=== PATIENT | female | born 1940 | race Caucasian/White ===

== ENCOUNTER 2016-11-29 10:28 | Observation (INO) | payer MEDICARE, SELFPAY ==
--- NOTE | ~2016-11-29 | HP ---
History And Physical [facility] [address] [place]. [address] NAME: KRISTYN FREEMAN : 38 STATUS : ADM Seb PAT#: [id number] AGE: 76 ADM/REG DATE : 11/29/16 MR#: [id number] REPORT SERV DATE: 11/29/16 DICTATED BY: NOEL WHITTEN III DATE: 11/29/16 REPORT STATUS : Draft TRANSCRIBED BY: RANDY DATE: 11/29/16 DATE OF ADMISSION: 11/29/2016 HISTORY OF PRESENT ILLNESS: Mrs. Kristyn Freeman is a 76-year-old white female from [place], [place], admitted to [facility] for evaluation and treatment of new onset atrial fibrillation with a rapid ventricular response. The patient had been in her usual state of health until approximately five days prior to this admission. At that time, the patient noted the onset of tachy palpitations lasting up to three minutes in duration. The patient's palpitations were occasionally accompanied by nausea. The patient denied any associated dyspnea, diaphoresis, vomiting, and chest pain. The patient's palpitations were precipitated by emotional upset. The patient denied relation to exertion, caffeine intake, chocolate intake, and sympathomimetic use. The patient denied relieving factors. The patient denied trying a Valsalva maneuver. The patient has noted palpitations at rest. The patient denied being woken from sleep by palpitations. The patient denied any change in the frequency or duration of her palpitations. The patient was subsequently seen in the [facility] emergency room. A 12-lead electrocardiogram demonstrated atrial fibrillation with an average ventricular response of 136 beats per minute, left anterior fascicular block and nonspecific ST-segment abnormalities. The patient's B-type natriuretic peptide level was 282.2 and troponin I level was 0.04. The patient was treated with enoxaparin and intravenous diltiazem up to a maximum of 20 mg/hour. The patient was subsequently admitted for further evaluation and therapy. The patient denied chest pain, syncope, dyspnea on exertion, orthopnea, paroxysmal nocturnal dyspnea, trepopnea, platypnea, sacral edema, pedal edema, hip claudication, and lower extremity claudication. The patient has no history of rheumatic fever or cardiac murmur. The patient's documented coronary artery disease risk factors include diabetes mellitus, obesity, and hypertension. The patient has no history of hyperthyroidism, congenital heart disease, chest trauma, chronic obstructive pulmonary disease, recent pneumonia, pulmonary thromboembolism, and alcohol use. PAST MEDICAL HISTORY: 1. Type II diabetes mellitus. 2. Obesity. 3. Hypertension. OPERATIVE PROCEDURES: Status post tonsillectomy. ALLERGIES: CEFACLOR (RASH). MEDICATIONS: 1. Aspirin 81 mg p.o. daily. 2. Glimepiride 1 mg p.o. daily. 3. Losartan 25 mg p.o. daily. 4. Multivitamin with minerals one p.o. daily. 5. Naphazoline-glycerin ophthalmic drops, one drop OU p.r.n. History And Physical [address] [address] NAME: KRISTYN FREEMAN : 38 STATUS : ADM Seb PAT#: [id number] AGE: 76 ADM/REG DATE : 11/29/16 MR#: [id number] REPORT SERV DATE: 11/29/16 DICTATED BY: NOEL WHITTEN III DATE: 11/29/16 REPORT STATUS : Draft TRANSCRIBED BY: RANDY DATE: 11/29/16 FAMILY HISTORY: Positive for diabetes mellitus and stroke. Negative for myocardial infarction, hypertension, cancer, seizures, kidney disease, liver disease, anemia, arthritis, and mental illness. SOCIAL HISTORY: The patient has no history of tobacco or alcohol use. PHYSICAL EXAMINATION: GENERAL: Demonstrated an alert, older white female, in no acute distress. VITAL SIGNS: Demonstrated a temperature of 97.9 orally, respiratory rate of 14 breaths per minute, and blood pressure of 175/108 mmHg with a heart rate of 77 beats per minute. SKIN: Warm and dry. NECK: Supple and nontender. There was decreased range of motion. There was no appreciable lymphadenopathy or thyromegaly. There was no jugular venous distention at 90 degrees. There were no carotid bruits. BACK: Examination of the back demonstrated no spinal or costovertebral angle tenderness. CHEST: Examination of the chest demonstrated coarse bibasilar inspiratory crackles. There were no rhonchi, wheezes, or pleural rubs. There was symmetrical expansion of the chest. There was no use of the accessary muscles respiration. CARDIAC: Demonstrated a nonpalpable apical impulse. There was an irregularly irregular rhythm and rate with a variable intensity first heart sound. There was no appreciable murmur, rub, gallop, or mid systolic click. There were no thrills or heaves. There was no hepatojugular reflux. ABDOMEN: Examination of the abdomen demonstrated that it was obese, soft, and protuberant. There was no appreciable hepatosplenomegaly or masses. Bowel sounds were intact. There were no abdominal or femoral bruits. EXTREMITIES: Examination of the extremities demonstrated that they were obese and symmetrical. There was decreased range of motion. There was no cyanosis, clubbing, or edema. Pulses were 2+ and equal at the radial, femoral, dorsalis pedis, and posterior tibial arteries. Serum laboratory studies demonstrated a potassium of 4.0, creatinine 0.86, calcium 9.2, and magnesium level was 2.2. The white blood cell count was 9700, hemoglobin 15.8, hematocrit 46.7, and a platelet count of 322,000. Telemetry strip recordings demonstrated atrial fibrillation with a controlled ventricular response. ASSESSMENT: Mrs. Kristyn Freeman is a 76-year-old white female with three other risk factors for coronary atherosclerotic disease (i.e. diabetes mellitus, obesity, hypertension) and no prior cardiac history, who now presents with new onset symptomatic atrial fibrillation with a rapid ventricular response. The patient is admitted for evaluation and initiation of therapy. /RANDY History And Physical [address] [address] NAME: KRISTYN FREEMAN : 38 STATUS : ADM Seb PAT#: [id number] AGE: 76 ADM/REG DATE : 11/29/16 MR#: [id number] REPORT SERV DATE: 11/29/16 DICTATED BY: NOEL WHITTEN III DATE: 11/29/16 REPORT STATUS : Draft TRANSCRIBED BY: RANDY DATE: 11/29/16 Noel Whitten III, M.D., [facility], [facility] / [id number] CC: Noel Whitten III, M.D., [facility], [facility]
[2016-11-29 11:10] LABS: BASOPHILS 0.3 %; BASOPHILS ABSOLUTE 0.03 10/3/uL (0.0-0.16); EOSINOPHILS 0.3 %; EOSINOPHILS ABSOLUTE 0.03 10/3/uL (0.0-0.53); HEMATOCRIT 46.7 % (36.0-48.0); HEMOGLOBIN 15.8 g/dL (12.0-16.0); IMMATURE GRANULOCYTES 0.3 %; IMMATURE GRANULOCYTES ABSOLUTE 0.03 10/3/uL (0.0-0.11); LYMPHOCYTES ABSOLUTE 1.55 10/3/uL (0.67-4.30); MEAN CORPUS HGB CONC 33.8 g/dL (32.0-36.0); MEAN CORPUSCULAR HEMOGLOB 29.3 pg (26.0-34.0); MEAN CORPUSCULAR VOLUME 86.5 fL (80-100); MONOCYTES 5.6 %; MONOCYTES ABSOLUTE 0.54 10/3/uL (0.21-1.20); NEUTROPHILS 77.5 %; NEUTROPHILS ABSOLUTE 7.52 10/3/uL (2.02-8.40); PLATELET COUNT 322 10/3/uL (150-400); RBC DISTRIBUTION WIDTH 12.8 % (12.0-16.0); WHITE BLOOD CELLS 9.7 10/3/uL (4.5-10.5)
[2016-11-29 11:11] LABS: ER CBC TAT 0 Hrs 03 Mins; MANUAL DIFF NO %
[2016-11-29 11:17] LABS: INTERNATIONAL NORMAL RATI 1.1 UNITS (-); PARTIAL THROMBO TIME 29.8 SEC (22.5-37.2); PROTIME (NOT ORD) 13.7 SEC (12.0-14.5)
[2016-11-29 11:33] LABS: BUN (BLOOD UREA NITROGEN) 20 MG/DL (6-23); CALCIUM, SERUM 9.2 MG/DL (8.5-10.4); CHEST PAIN PROFILE TAT 0 Hrs 26 Mins; CHLORIDE, SERUM 105 MMOL/L (96-112); CO2 (CARBON DIOXIDE) 30 MMOL/L (24-34); CREATININE 0.86 MG/DL (0.55-1.02); GFR AFRICAN AMERICAN 76 ML/MIN (>=60); GFR NON AFRICAN AMERICAN 65 ML/MIN (>=60); GLUCOSE, SERUM 129 MG/DL (60-99); SODIUM, SERUM 139 MMOL/L (135-148); TROPONIN I 0.04 NG/ML (<0.05)
[2016-11-29] MEDS ORDERED: AMARYL1 MG PO (14:10)
[2016-11-29] MEDS ORDERED: COZ25 PO (14:11)
[2016-11-29] MEDS ORDERED: ASAB PO (14:12)
[2016-11-29] MEDS ORDERED: OCUVITE PO (14:13)
[2016-11-29] MEDS ORDERED: CLEAR EYE1 OPH (14:15)
[2016-11-29 17:54] LABS: FREE T4 1.03 NG/DL (0.76-1.46)
[2016-11-30 05:48] LABS: BASOPHILS 0.6 %; BASOPHILS ABSOLUTE 0.05 10/3/uL (0.0-0.16); EOSINOPHILS 1.6 %; EOSINOPHILS ABSOLUTE 0.13 10/3/uL (0.0-0.53); HEMATOCRIT 45.1 % (36.0-48.0); HEMOGLOBIN 14.9 g/dL (12.0-16.0); IMMATURE GRANULOCYTES 0.5 %; IMMATURE GRANULOCYTES ABSOLUTE 0.04 10/3/uL (0.0-0.11); LYMPHOCYTES 22.2 %; LYMPHOCYTES ABSOLUTE 1.78 10/3/uL (0.67-4.30); MEAN CORPUSCULAR HEMOGLOB 28.9 pg (26.0-34.0); MEAN CORPUSCULAR VOLUME 87.6 fL (80-100); MONOCYTES 8.4 %; MONOCYTES ABSOLUTE 0.67 10/3/uL (0.21-1.20); NEUTROPHILS 66.7 %; NEUTROPHILS ABSOLUTE 5.34 10/3/uL (2.02-8.40); PLATELET COUNT 312 10/3/uL (150-400); RBC DISTRIBUTION WIDTH 12.6 % (12.0-16.0); RED CELL COUNT 5.15 10/6/uL (4.0-5.6)
[2016-11-30 05:52] LABS: MANUAL DIFF NO %
[2016-11-30 06:14] LABS: ALBUMIN 3.7 G/DL (3.5-5.0); ALKALINE PHOSPHATASE 66 U/L (45-117); CALCIUM, SERUM 8.8 MG/DL (8.5-10.4); CHLORIDE, SERUM 108 MMOL/L (96-112); CO2 (CARBON DIOXIDE) 30 MMOL/L (24-34); CREATININE 0.76 MG/DL (0.55-1.02); DIRECT BILIRUBIN 0.1 MG/DL (0.0-0.4); FREE T4 1.09 NG/DL (0.76-1.46); GFR AFRICAN AMERICAN 88 ML/MIN (>=60); GFR NON AFRICAN AMERICAN 76 ML/MIN (>=60); GLUCOSE, SERUM 121 MG/DL (60-99); INDIRECT BILIRUBIN(NOT ORDER) 1.3 MG/DL (0.1-0.9); POTASSIUM, SERUM 4.2 MMOL/L (3.5-5.3); SGOT(AST) 12 U/L (5-40); SGPT(ALT) 15 U/L (5-65); SODIUM, SERUM 143 MMOL/L (135-148); TOTAL BILIRUBIN 1.4 MG/DL (0-1.2); TOTAL PROTEIN 6.9 G/DL (6.0-8.5)
[2016-11-30 06:15] LABS: BUN (BLOOD UREA NITROGEN) 15 MG/DL (6-23)
[2016-11-30 06:18] LABS: INTERNATIONAL NORMAL RATI 1.1 UNITS (-); PROTIME (NOT ORD) 14.5 SEC (12.0-14.5)
[2016-11-30 06:19] LABS: PARTIAL THROMBO TIME 31.6 SEC (22.5-37.2)
[2016-12-01] MEDS ORDERED: ELIQUIS 5 MG TAB5 MG PO (09:59)
[2016-12-01] MEDS ORDERED: TOPXL100 PO (10:02)
[2016-12-01] MEDS ORDERED: CARDCD240 PO (10:02)
[2017-01-16] MEDS ORDERED: BETAPACE80 PO (17:36)
== END 2016-12-01 10:30 | disposition home or self-care (01) ==
LOC: ER 10:28 → CDU1 13:42 → CDU2 14:24
PROVIDERS: Emergency Medicine; Internal Medicine Cardiovascular Disease
DX: I48.91 Unspecified atrial fibrillation (principal); E11.9 Type 2 diabetes mellitus without complications; E66.9 Obesity, unspecified; I10 Essential (primary) hypertension; Z88.8 Allergy status to other drugs, medicaments and biological substances; Z79.82 Long term (current) use of aspirin; Z79.899 Other long term (current) drug therapy; Z82.3 Family history of stroke; Z83.3 Family history of diabetes mellitus; Z90.89 Acquired absence of other organs
CPT/HCPCS: 71020; 80048; 80076; 82962; 83735; 83880; 84439; 84443; 84484; 85025; 85610; 85730; 93005; 93306; 96372; 96374; 96376; 99291; A9270-GY; G0378

== ENCOUNTER 2016-12-19 10:06 | Emergency (ER) | payer MEDICARE, SELFPAY ==
[~2016-12-19 10:06] MED LIST: AMARYL1 MG PO; ASAB PO; CARDCD240 PO; CLEAR EYE1 OPH; COZ25 PO; ELIQUIS 5 MG TAB5 MG PO; OCUVITE PO; TOPXL100 PO
[2016-12-19 11:45] LABS: BASOPHILS 0.3 %; BASOPHILS ABSOLUTE 0.03 10/3/uL (0.0-0.16); EOSINOPHILS 0.4 %; EOSINOPHILS ABSOLUTE 0.04 10/3/uL (0.0-0.53); HEMATOCRIT 45.2 % (36.0-48.0); HEMOGLOBIN 15.5 g/dL (12.0-16.0); IMMATURE GRANULOCYTES 0.2 %; IMMATURE GRANULOCYTES ABSOLUTE 0.02 10/3/uL (0.0-0.11); LYMPHOCYTES 12.8 %; LYMPHOCYTES ABSOLUTE 1.16 10/3/uL (0.67-4.30); MEAN CORPUS HGB CONC 34.3 g/dL (32.0-36.0); MEAN CORPUSCULAR HEMOGLOB 29.1 pg (26.0-34.0); MONOCYTES 5.5 %; NEUTROPHILS 80.8 %; PLATELET COUNT 270 10/3/uL (150-400); RBC DISTRIBUTION WIDTH 12.6 % (12.0-16.0); RED CELL COUNT 5.33 10/6/uL (4.0-5.6); WHITE BLOOD CELLS 9.1 10/3/uL (4.5-10.5)
[2016-12-19 11:46] LABS: MANUAL DIFF NO %; MEAN CORPUSCULAR VOLUME 84.8 fL (80-100)
[2016-12-19 11:52] LABS: INTERNATIONAL NORMAL RATI 1.4 UNITS (-); PARTIAL THROMBO TIME 36.5 SEC (22.5-37.2)
[2016-12-19 11:53] LABS: ASCORBIC ACID (UR NOT ORDER) NEG (NEG); BILIRUBIN, URINE NEGATIVE (NEG); ER URINALYSIS TAT 0 Hrs 13 Mins; KETONE, URINE NEGATIVE (NEG); LEUKOCYTE ESTERASE(NOT OR TRACE (NEG); NITRITE (URINE) NEG (NEG); WBC (NOT ORDERED) (RFLEX) 1 (0-5)
[2016-12-19 12:03] LABS: A/G RATIO 1.1 (0.7-1.9); ALBUMIN 3.6 G/DL (3.5-5.0); ALKALINE PHOSPHATASE 78 U/L (45-117); BUN (BLOOD UREA NITROGEN) 16 MG/DL (6-23); CALCIUM, SERUM 9.1 MG/DL (8.5-10.4); CHLORIDE, SERUM 104 MMOL/L (96-112); CO2 (CARBON DIOXIDE) 27 MMOL/L (24-34); GFR AFRICAN AMERICAN 97 ML/MIN (>=60); GFR NON AFRICAN AMERICAN 84 ML/MIN (>=60); GLOBULIN 3.4 G/DL (2.5-4.1); GLUCOSE, SERUM 132 MG/DL (60-99); SGOT(AST) 20 U/L (5-40); SGPT(ALT) 38 U/L (5-65); SODIUM, SERUM 138 MMOL/L (135-148); TOTAL BILIRUBIN 0.8 MG/DL (0-1.2); TROPONIN I <0.02 NG/ML (<0.05)
[2016-12-19] MEDS ORDERED: MULTIVIT/MIN PO (14:01)
[2017-01-16] MEDS ORDERED: BETAPACE80 PO (17:36)
== END 2016-12-19 15:21 | disposition home or self-care (01) ==
LOC: ER 10:06
PROVIDERS: Emergency Medicine
DX: I48.91 Unspecified atrial fibrillation (principal); I10 Essential (primary) hypertension; E11.9 Type 2 diabetes mellitus without complications; Z88.1 Allergy status to other antibiotic agents; Z79.82 Long term (current) use of aspirin; Z79.899 Other long term (current) drug therapy; Z79.84 Long term (current) use of oral hypoglycemic drugs
CPT/HCPCS: 71010; 80053; 81001; 83735; 83880; 84484; 85025; 85610; 85730; 93005; 96360; 99285